=== PATIENT | male | born 1995 | race Asian ===

== ENCOUNTER → 2021-01-26 | Outpatient (CLI) | payer OTHER ==
--- NOTE | 2021-01-26 16:08 | Diagnostic Imaging Report ---
INDICATION: Injury to left shoulder. TIME OF EXAM: 2:55 p.m. EXAMINATION: Three views of the left shoulder were obtained. FINDINGS: The glenohumeral and acromioclavicular alignment are normal. Acromiohumeral space is normal. No fracture or dislocation is seen. IMPRESSION: No acute bony abnormality is detected. Dictated by: Dictated on workstation # [id number]
== END ==
LOC: RAD 14:25
PROVIDERS: ATTEND Internal Medicine
DX: S49.92XA Unspecified injury of left shoulder and upper arm, initial encounter (principal); X58.XXXA Exposure to other specified factors, initial encounter
CPT/HCPCS: 73030

== ENCOUNTER → 2022-03-01 | Outpatient (CLI) | payer OTHER ==
--- NOTE | 2022-03-01 17:13 | Diagnostic Imaging Report ---
INDICATION: Pain status post injury. COMPARISON: None FINDINGS: Multiple radiographic views of the left hand were obtained. There is acute comminuted nondisplaced fracture involving the shaft of the proximal 4th metacarpal. There is no appreciable intra-articular extension. No other acute osseous abnormalities are seen. Joint spaces are maintained. No unexpected radiopaque foreign bodies are identified. IMPRESSION: 1. Acute fracture of the 4th metacarpal as above. Dictated by: Dictated on workstation # [id number]
== END ==
LOC: RAD 15:50
PROVIDERS: ATTEND Nurse Practitioner Primary Care
DX: S69.92XA Unspecified injury of left wrist, hand and finger(s), initial encounter (principal); Y93.72 Activity, wrestling
CPT/HCPCS: 73130